=== PATIENT | male | born 1940 | race Caucasian/White ===

== ENCOUNTER 2016-05-08 13:26 | Inpatient (IN) ==
[2016-05-08 14:09] LABS: Basophils % 0.5 %; Eosinophils # 0.2 K/mcL (0.0-0.6); Eosinophils % 2.9 %; Hematocrit 40.2 % (37.5-50.1); Hemoglobin 12.8 g/dL (12.9-16.9); Immature Granulocytes % 0.5 % (0-4); Lymphocytes # 1.2 K/mcL (0.6-4.6); Lymphocytes % 21.5 %; Mean Corpuscular HGB Conc 31.8 g/dL (31.6-35.5); Mean Corpuscular Hemoglobin 29.4 pg (28.0-33.3); Mean Corpuscular Volume 92.4 fL (83.0-100.0); Mean Platelet Volume 9.2 fL (9.4-12.4); Monocytes # 0.5 K/mcL (0.0-1.3); Monocytes % 8.6 %; Neutrophils # 3.7 K/mcL (1.6-8.9); Platelet Count 146 K/mcL (140-400); Red Blood Count 4.35 M/mcL (4.19-5.50); Red Cell Distribution Width 14.7 % (11.5-14.5)
[2016-05-08 14:21] LABS: BUN/Creatinine Ratio 15 (6-26); Blood Urea Nitrogen 19 mg/dL (8-26); Calcium 9.2 mg/dL (8.6-10.8); Carbon Dioxide 21 mEq/L (19-29); Chloride 111 mEq/L (98-109); Glucose 103 mg/dL (70-99); Osmolality,Calculated 299 (280-300); Potassium 3.8 mEq/L (3.5-4.5); Sodium 143 mEq/L (136-145); eGFR For African Americans > 60 (> 60); eGFR For Non-African Americans 53 (> 60)
[2016-05-08] MEDS ORDERED: Aspirin 325 MG TABLET PO ONE (15:16)
--- NOTE | 2016-05-08 15:24 | Emergency Department Note ---
Disposition Clinical Impression: Elevated troponin I level, Exertional dyspnea Pneumonia Qualifiers: Pneumonia type: due to unspecified organism Laterality: right Lung location: lower lobe of lung Qualified Code(s): J18.1 - Lobar pneumonia, unspecified organism Disposition: Admitted As Inpatient Condition: Fair Forms: ED Satisfaction Letter Time of Disposition: 15:53 SOB HPI - General Chief Complaint: ED Shortness of Breath/Dyspnea Stated Complaint: BIA Time Seen by Provider: 05/08/16 13:40 Source: patient Limitations: no limitations Nursing Notes Reviewed: Yes Vital Signs Reviewed: Yes - History of Present Illness Patient is a 76-year-old male who presents to [facility] ED with a chief complaint of difficulty breathing and some chest pain. States he has had upper respiratory infection that turned into a pneumonia several months ago 03/18. He was hospitalized here for a few days and then sent home on oral Levaquin. He has continually had symptoms of cough since then and shortness of breath. He has progressed to have severe exertional dyspnea where he cannot take more than several steps before getting out of breath and having to lean up against something. States he just overall feels weak. Denies having any actual chest pain. Denies any nausea, vomiting, fever or chills. No problems with urination or bowel movements. No history of cardiac problems. His last heart stress test was approximately 18 years ago. Pt Subjective Complaint: shortness of breath Onset (ago): month(s) Context: recent illness, occurred during exertion Severity: moderate Consistency/Duration: gradually worsening Improves with: oxygen, rest Worsens with: movement Known history of: other (pneumonia) Associated symptoms: Reports: cough. Denies: chest pain, fever, diaphoresis, nausea/vomiting, abdominal pain Treatment prior to arrival: oxygen Cough present: No Sputum production: No - Related Data Home oxygen amount: 2 liters Home Medications Medication Instructions Recorded Confirmed Amlodipine Besylate 10 mg PO DAILY 03/18/16 03/18/16 Naproxen Sodium [Aleve] 220 - 440 mg PO DAILY PRN 03/18/16 03/18/16 Simvastatin [Zocor] 20 mg PO DAILY 03/18/16 03/18/16 Tamsulosin HCl [Flomax] 0.4 mg PO DAILY 03/18/16 03/18/16 Previous Rx's Medication Instructions Recorded Albuterol Sulfate [Albuterol 1 puff IH Q4HR PRN #4 inhaler 03/20/16 Inhaler] Budesonide/Formoterol 80/4.5 2 puff IH BIDR #5 inhaler 03/20/16 [Symbicort 80/4.5] Levofloxacin [Levaquin] 750 mg PO DAILY #5 tablet 03/20/16 PredniSONE 40 mg PO DAILY #21 tablet 03/20/16 Allergies Allergy/AdvReac Type Severity Reaction Status Date / Time Penicillins [PCN] AdvReac Hives Verified 09/27/15 11:05 All systems ED: reviewed and negative except as stated. Past Medical History - Past Medical History Attestation: Yes The following information was validated with the patient. Source: patient Medical history: Reports: GERD, hypertension Surgical history: Reports: hip replacement Psychiatric history: Reports: no psych history - Social History Smoking Status: Former smoker Smokeless Tobacco Status: No Alcohol use: Reports: none Drug use: Reports: none Physical Exam - General Limitations: no limitations General appearance: alert - Head Head exam: atraumatic, normocephalic, normal inspection - Eye Eye exam: Present: normal appearance, PERRL, EOMI - ENT ENT exam: normal exam, normal oropharynx, mucous membranes moist - Neck Neck exam: Present: normal inspection, full ROM, trachea midline - Chest Chest inspection: Present: normal inspection, symmetric chest wall rise - Respiratory Respiratory exam: Present: normal lung sounds bilaterally - Cardiovascular Cardiovascular exam: Present: normal rhythm, tachycardia - Abdominal Exam Abdominal exam: Present: soft, Non-Tender. Absent: tenderness, distention, guarding, rebound, rigidity - Extremities Exam Extremities exam: Present: normal inspection, full ROM. Absent: tenderness, pedal edema - Back Exam Back exam: Present: normal inspection, full ROM. Absent: tenderness - Neurological Exam Neurological exam: Present: alert, oriented X3 - Psychiatric Psychiatric exam: Present: normal affect, normal mood - Skin Skin exam: Present: warm, dry, intact, normal color Course Course Narrative: Patient seen and examined. Difficulty breathing for the last few months. Oxygen saturations around 86% on 2 L. He gets extremely short of breath with exertion. Cardiopulmonary workup initiated. - Reevaluation(s) Reevaluation #1: Patient does have a troponin elevation of 0.04 as well as persistent right lower lobe infiltrate. Aspirin ordered. Patient is still not moving very much air. Triple DuoNeb ordered for him. Also give 125 mg of Solu-Medrol. We will place him on Levaquin and vancomycin and repeat a CT of the chest. I spoke with hospitalist Brenda Simon NP who has accepted patient for admission. Time: 15:50 Vital Signs Temperature 97.4 F L 05/08/16 13:35 Pulse Rate 105 05/08/16 13:35 Respiratory Rate 20 05/08/16 13:35 Blood Pressure 109/60 05/08/16 13:35 O2 Sat by Pulse Oximetry 78 L 05/08/16 13:35 Temperature 97.4 F L 05/08/16 13:35 Pulse Rate 91 05/08/16 14:49 Respiratory Rate 20 05/08/16 14:49 Blood Pressure 126/73 05/08/16 14:49 O2 Sat by Pulse Oximetry 91 L 05/08/16 14:49 Oxygen Delivery Oxygen Delivery Nasal Cannula Shortness of Breath/Dyspnea - Medical Records Medical records reviewed: Yes I reviewed the patient's medical records. - Lab Data Lab results reviewed: Yes I reviewed the patient's lab results. Result diagrams: 05/08/16 14:02 05/08/16 14:02 Lab Results 05/08/16 05/08/16 05/08/16 Range/Units 14:02 14:02 14:02 WBC 5.6 (4.3-11.1) K/mcL RBC 4.35 (4.19-5.50) M/mcL Hgb 12.8 L (12.9-16.9) g/dL Hct 40.2 (37.5-50.1) % MCV 92.4 (83.0-100.0) fL MCH 29.4 (28.0-33.3) pg MCHC 31.8 (31.6-35.5) g/dL RDW 14.7 H (11.5-14.5) % Plt Count 146 (140-400) K/mcL MPV 9.2 L (9.4-12.4) fL Immature Gran % 0.5 (0-4) % Seg Neutrophils % 66.0 % Lymphocytes % 21.5 % Monocytes % 8.6 % Eosinophils % 2.9 % Basophils % 0.5 % Neutrophils # 3.7 (1.6-8.9) K/mcL Lymphocytes # 1.2 (0.6-4.6) K/mcL Monocytes # 0.5 (0.0-1.3) K/mcL Eosinophils # 0.2 (0.0-0.6) K/mcL Basophils # 0.0 (0.0-0.2) K/mcL Sodium 143 (136-145) mEq/L Potassium 3.8 (3.5-4.5) mEq/L Chloride 111 H (98-109) mEq/L Carbon Dioxide 21 (19-29) mEq/L BUN 19 (8-26) mg/dL Creatinine 1.31 H (0.72-1.25) mg/dL Est GFR ( Amer) > 60 (> 60) Est GFR (Non-Af Amer) 53 L (> 60) BUN/Creatinine Ratio 15 (6-26) Glucose 103 H (70-99) mg/dL Calculated Osmolality 299 (280-300) Lactic Acid 1.2 (0.5-2.2) mmol/L Calcium 9.2 (8.6-10.8) mg/dL Troponin I (0-0.03) ng/mL B-Natriuretic Peptide (0-100) pg/mL 05/08/16 05/08/16 Range/Units 14:02 14:02 WBC (4.3-11.1) K/mcL RBC (4.19-5.50) M/mcL Hgb (12.9-16.9) g/dL Hct (37.5-50.1) % MCV (83.0-100.0) fL MCH (28.0-33.3) pg MCHC (31.6-35.5) g/dL RDW (11.5-14.5) % Plt Count (140-400) K/mcL MPV (9.4-12.4) fL Immature Gran % (0-4) % Seg Neutrophils % % Lymphocytes % % Monocytes % % Eosinophils % % Basophils % % Neutrophils # (1.6-8.9) K/mcL Lymphocytes # (0.6-4.6) K/mcL Monocytes # (0.0-1.3) K/mcL Eosinophils # (0.0-0.6) K/mcL Basophils # (0.0-0.2) K/mcL Sodium (136-145) mEq/L Potassium (3.5-4.5) mEq/L Chloride (98-109) mEq/L Carbon Dioxide (19-29) mEq/L BUN (8-26) mg/dL Creatinine (0.72-1.25) mg/dL Est GFR ( Amer) (> 60) Est GFR (Non-Af Amer) (> 60) BUN/Creatinine Ratio (6-26) Glucose (70-99) mg/dL Calculated Osmolality (280-300) Lactic Acid (0.5-2.2) mmol/L Calcium (8.6-10.8) mg/dL Troponin I 0.04 H* (0-0.03) ng/mL B-Natriuretic Peptide 99 (0-100) pg/mL - Radiology Data Radiology results reviewed: Yes I reviewed the patient's radiology results. - EKG Data EKG attestation: Yes I reviewed and interpreted this EKG. EKG results narrative: EKG done at 1447 shows normal sinus rhythm with a rate of [address] elevation or depression. Left axis deviation. Unchanged from prior EKG done .
[2016-05-08] MEDS ORDERED: Ipratropium/Albuterol Neb 3 ML IH ONE (15:43)
[2016-05-08] MEDS ORDERED: methylPREDNISolone 125 MG/2 ML VIAL IVP ONE (15:44)
--- NOTE | 2016-05-08 15:52 | Emergency Department Note ---
START Narrative - START START: I examined this patient and my medical decision-making was reviewed with the FINANCE MANAGER/PA/Advanced Practice Nurse/Resident Physician. I agree with the documented findings, disposition and treatment plan as described except to the extent set forth below. Patient emergency department any difficulty in breathing. Dyspnea on exertion. Patient had a recent admission for pneumonia. States she does not feel like he ever got better. No fever. On examination he is in no distress. His lung sounds are diminished. Plan. The patient has a persistent infiltrate on his chest x-ray. He has a slightly elevated troponin at 0.04. He is given an aspirin. Nebulizer treatments. Admitted to medicine. The patient's oxygen saturation improved when he is placed on oxygen. He is normally on 3 L at home but 4 required here to keep saturation above 92%. 30 minutes of critical care exclusive of separately billable procedures.
[2016-05-08] MEDS ORDERED: Vancomycin 1,250 MG in D5% in Water 250 ML IVPB ONE (16:00)
[2016-05-08] MEDS: Levofloxacin 750 MG/150 ML 750 MG/150 ML BAG IVPB SCH (16:21)
--- NOTE | 2016-05-08 21:01 | Internal Med History&Physical ---
<Marisol Meyer - Last Filed: 05/08/16 22:30> Date of Encounter: 05/08/16 Time of Encounter: 20:59 Assessment and Plan (1) Acute on chronic respiratory failure with hypoxemia Status: Acute duoneb q4h solu-medrol 80mg q12h Levaquin VBG to check CO2 rentention - results will determine what O2 sat to maintain patient at (2) VINOD (acute kidney injury) Status: Acute IVF AM labs (3) Elevated troponin I level Status: Acute trend troponins (4) HTN (hypertension) Status: Acute continue home medication monitor PRN labetalol Qualifiers: Hypertension type: essential hypertension Qualified Code(s): I10 - Essential (primary) hypertension (5) Emphysema of lung Status: Acute chest CT shows severe emphysema home medications are not adequate to manage severe emphysema consider pulmonology consult either inpatient or outpatient for emphysema management Qualifiers: Emphysema type: centrilobular Qualified Code(s): J43.2 - Centrilobular emphysema Internal Medicine - H&P: HPI Chief complaint: shortness of breath Admitted From: Emergency Dept Plans for Post Hospital Care: Home History of present illness: Mr. Tapia is a 76 year old male who presents to the ER with increased shortness of breath and difficulty in breathing. He was admitted at the end of February with pneumonia and feels that he never really got better. On further questioning, he states that he has been short of breath since November of 2014. He also states that every year around November he gets a hacking cough that he believes is due to allergies and the past few years it has manifested as multiple bouts of pneumonia. He currently uses 2L of supplemental O2 24/7 at home. Before arrival to the ER he states that he would have dyspnea with walking less than 20 feet, also with lifting his 20 # dog onto the bed. He notes associated weakness and fatigue. Past Med Surg Social Fam HX - Past Medical History Source: patient Medical history: GERD, hypertension Psychiatric history: no psych history - Past Surgical History Surgical History: herniorrhaphy, hip replacement - Social History Smoking Status: Former smoker Smokeless Tobacco Status: No Alcohol use: rarely Drug use: none - Family History Brother Living Status: Hx Family Cardiac Disorders: Yes Mother Living Status: Hx Family Neurologic Disorders: Yes (alzheimer's) Father History Unknown: Yes Internal Medicine - H&P: Meds Amlodipine Besylate 10 mg PO DAILY 03/18/16 [History] Tamsulosin HCl [Flomax] 0.4 mg PO DAILY 03/18/16 [History] Albuterol Sulfate [Albuterol Inhaler] 1 puff IH Q4HR PRN #4 inhaler 03/20/16 [Rx ] Budesonide/Formoterol 80/4.5 [Symbicort 80/4.5] 2 puff IH BIDR #5 inhaler 03/20 [Rx] Aspirin Enteric Coated [Aspirin EC] 81 mg PO DAILY 05/08/16 [History] Furosemide [Lasix] 20 mg PO DAILY #30 tablet 05/10/16 [Rx] PredniSONE 10 mg PO DAILY 12 Days 05/10/16 [Rx] Allergies Penicillins [PCN] Adverse Reaction (Verified 09/27/15 11:05) Hives All Systems PM: A 10-system review of systems was performed and is negative for pertinent findings except as documented above in the HPI. - Constitutional Constitutional: fatigue, weakness, no chills, no fever(s), no night sweats - EENT Eyes: no change in vision, no discharge, no pain, no photophobia Ears: no ear discharge, no ear pain, no tinnitus Nose, mouth and throat: no dysphagia, no nasal discharge, no neck pain, no sore throat - Cardiovascular Cardiovascular ROS IM: dyspnea, dyspnea on exertion, no chest pain, no diaphoresis, no lightheadedness, no palpitations, no syncope - Respiratory Respiratory: cough, no dyspnea, no wheezing, no excessive phlegm production - Gastrointestinal Gastrointestinal: no abdominal pain, no diarrhea, no hematemesis, no hematochezia, no melena, no nausea, no vomiting - Genitourinary Genitourinary ROS male: no dysuria - Musculoskeletal Musculoskeletal ROS IM: no arthralgias, no myalgias, no numbness, no tingling - Integumentary Integumentary IM: no rash, no unusual bruising - Neurological Neurological ROS: no confusion, no convulsions, no focal weakness, no numbness, no tingling, no tremor(s) - Hematologic/Lymphatic Hematologic/Lymphatic: no easy bruising - Constitutional Vitals: Temp Pulse Resp BP Pulse Ox 97.5 F L 106 17 139/62 97 05/08/16 19:13 05/08/16 19:13 05/08/16 19:13 05/08/16 19:13 05/08/16 19:13 General appearance: Present: A&O X 3, pleasant, no acute distress, answers questions appropriately - Head Head exam: Present: atraumatic, normocephalic - Eye Eye exam: Present: PERRL, conjuntiva pink, sclera anicteric Pupils: Present: PERRL - Neck Neck exam general surgery: Present: supple, trachea midline. Absent: lymphadenopathy - Respiratory Respiratory exam: Present: CTAB. Absent: accessory muscle use, rales, rhonchi, wheezes - Cardiovascular Cardiovascular exam: Present: RRR, +S1, +S2. Absent: diastolic murmur, gallop, rubs, systolic murmur - GI/Abdominal GI/Abdominal exam: Present: normal bowel sounds, soft, no peritoneal signs. Absent: distended, tenderness - Extremities Exam Extremities exam: Present: warm. Absent: calf tenderness, cyanotic, pedal edema - Neurological Exam Neurological exam: Present: CN II-XII intact, oriented X3, no focal deficits. Absent: pronater drift, facial droop, speech deficit - Skin Skin exam: Present: dry, intact Internal Med - H&P Results - Labs CBC & Chem 7: 05/08/16 14:02 05/08/16 14:02 <Gamal Bassettis - Last Filed: 05/13/16 02:53> Date of Encounter: 05/08/16 Assessment and Plan (1) Acute exacerbation of chronic obstructive pulmonary disease (COPD) Status: Acute . (2) SIRS (systemic inflammatory response syndrome) Status: Acute . (3) Demand ischemia of myocardium Status: Acute . (4) Ischemia due to increased oxygen demand Status: Acute . (5) VINOD (acute kidney injury) Status: Acute . (6) Acute on chronic respiratory failure with hypoxemia Status: Acute . (7) Elevated troponin I level Status: Acute . (8) Emphysema of lung Status: Chronic . Qualifiers: Emphysema type: centrilobular Qualified Code(s): J43.2 - Centrilobular emphysema (9) Exertional dyspnea Status: Chronic . (10) HTN (hypertension) Status: Chronic . Qualifiers: Hypertension type: essential hypertension Qualified Code(s): I10 - Essential (primary) hypertension (11) Pulmonary nodules Status: Chronic . (12) Chronic respiratory failure with hypoxia Status: Chronic . (13) Dependence on continuous supplemental oxygen Status: Chronic . (14) Acute bronchitis and bronchiolitis Status: Acute . (15) Age-related physical debility Status: Chronic . Internal Medicine - H&P: HPI History of present illness: Mr. Tapia is a 76 year old male is admitted to [facility] via the emergency department with an chief complaint of difficulty breathing. The patient was visited interviewed and examined. For this encounter, I have reviewed the documentation, treatment plan, and medical decision making. I examined this patient and my medical decision-making was reviewed with the Resident Physician. I agree with the documented findings, disposition and treatment plan as described except to the extent set forth below. Cumulative laboratory and radiographic database was reviewed, considered and discussed. Given the patient's presenting concerns, past medical history, clinical findings and symptoms, she is admitted at this time to undergo further evaluation and disposition. Orders written. Past Med Surg Social Fam HX - Past Medical History Source: old records reviewed Medical history: arthritis, COPD, coronary artery disease, GERD, peripheral artery disease, renal disease (BPH/prostatism.), other (Diverticulosis coli.) - Past Surgical History Surgical History: other - Social History Activity Level: Mostly sedentary Recent Out of Country Travel Within the Last 8 Weeks: No Exposure or Possible Exposure to Illness During Travel: No All Systems PM: A 10-system review of systems was performed and is negative for pertinent findings except as documented above in the HPI. - Constitutional Vitals: Temp Pulse Resp BP Pulse Ox 97.5 F L 98 18 103/63 88 L 05/10/16 06:46 05/10/16 06:46 05/10/16 08:05 05/10/16 06:46 05/10/16 08:05 Internal Med - H&P Results - Labs CBC & Chem 7: 05/09/16 04:33 05/10/16 06:53 Labs: Abnormal lab results Hgb 12.3 g/dL (12.9-16.9) L 05/09/16 04:33 RDW 14.9 % (11.5-14.5) H 05/09/16 04:33 VBG pCO2 38 mmHg (41-51) L 05/09/16 06:13 VBG pO2 69 mmHg (25-40) H 05/09/16 06:13 Chloride 111 mEq/L (98-109) H 05/10/16 06:53 BUN 28 mg/dL (8-26) H D 05/10/16 06:53 Creatinine 1.29 mg/dL (0.72-1.25) H 05/10/16 06:53 Est GFR (Non-Af Amer) 54 (> 60) L 05/10/16 06:53 Glucose 139 mg/dL (70-99) H 05/10/16 06:53 Calculated Osmolality 302 (280-300) H 05/10/16 06:53 Laboratory Last Values WBC 4.5 K/mcL (4.3-11.1) 05/09/16 04:33 RBC 4.21 M/mcL (4.19-5.50) 05/09/16 04:33 Hgb 12.3 g/dL (12.9-16.9) L 05/09/16 04:33 Hct 38.8 % (37.5-50.1) 05/09/16 04:33 MCV 92.2 fL (83.0-100.0) 05/09/16 04:33 MCH 29.2 pg (28.0-33.3) 05/09/16 04:33 MCHC 31.7 g/dL (31.6-35.5) 05/09/16 04:33 RDW 14.9 % (11.5-14.5) H 05/09/16 04:33 Plt Count 151 K/mcL (140-400) 05/09/16 04:33 MPV 9.9 fL (9.4-12.4) 05/09/16 04:33 Immature Gran % 0.4 % (0-4) 05/09/16 04:33 Seg Neutrophils % 82.3 % 05/09/16 04:33 Lymphocytes % 15.1 % 05/09/16 04:33 Monocytes % 2.2 % 05/09/16 04:33 Eosinophils % 0.0 % 05/09/16 04:33 Basophils % 0.0 % 05/09/16 04:33 Neutrophils # 3.7 K/mcL (1.6-8.9) 05/09/16 04:33 Lymphocytes # 0.7 K/mcL (0.6-4.6) 05/09/16 04:33 Monocytes # 0.1 K/mcL (0.0-1.3) 05/09/16 04:33 Eosinophils # 0.0 K/mcL (0.0-0.6) 05/09/16 04:33 Basophils # 0.0 K/mcL (0.0-0.2) 05/09/16 04:33 VBG pH 7.39 pH Units (7.32-7.42) 05/09/16 06:13 VBG pCO2 38 mmHg (41-51) L 05/09/16 06:13 VBG pO2 69 mmHg (25-40) H 05/09/16 06:13 VBG HCO3 23.0 mEq/L (21-27) 05/09/16 06:13 Sodium 142 mEq/L (136-145) 05/10/16 06:53 Potassium 4.0 mEq/L (3.5-4.5) 05/10/16 06:53 Chloride 111 mEq/L (98-109) H 05/10/16 06:53 Carbon Dioxide 20 mEq/L (19-29) 05/10/16 06:53 BUN 28 mg/dL (8-26) H D 05/10/16 06:53 Creatinine 1.29 mg/dL (0.72-1.25) H 05/10/16 06:53 Est GFR ( Amer) > 60 (> 60) 05/10/16 06:53 Est GFR (Non-Af Amer) 54 (> 60) L 05/10/16 06:53 BUN/Creatinine Ratio 22 (6-26) 05/10/16 06:53 Glucose 139 mg/dL (70-99) H 05/10/16 06:53 Calculated Osmolality 302 (280-300) H 05/10/16 06:53 Lactic Acid 1.2 mmol/L (0.5-2.2) 05/08/16 14:02 Calcium 8.9 mg/dL (8.6-10.8) 05/10/16 06:53 Total Bilirubin 0.6 mg/dL (0.2-1.2) 05/09/16 04:33 AST 14 Units/L (5-34) 05/09/16 04:33 ALT 10 Units/L (0-55) 05/09/16 04:33 Alkaline Phosphatase 61 Units/L (38-126) 05/09/16 04:33 Troponin I 0.03 ng/mL (0-0.03) 05/09/16 10:40 B-Natriuretic Peptide 99 pg/mL (0-100) 05/08/16 14:02 Serum Total Protein 6.9 g/dL (6.0-8.3) 05/09/16 04:33 Albumin 3.8 g/dL (3.5-5.0) 05/09/16 04:33 Globulin 3.1 g/dL (2.4-3.5) 05/09/16 04:33 Albumin/Globulin Ratio 1.2 (1.1-2.2) 05/09/16 04:33 Chlamy pneumoniae PCR Not Detected (Not Detect) 05/09/16 06:25 Adenovirus (PCR) Not Detected (Not Detect) 05/09/16 06:25 B. pertussis DNA (PCR) Not Detected (Not Detect) 05/09/16 06:25 Coronavirus OC43 (PCR) Not Detected (Not Detect) 05/09/16 06:25 Coronavirus HKU1 (PCR) Not Detected (Not Detect) 05/09/16 06:25 Coronavirus 229E (PCR) Not Detected (Not Detect) 05/09/16 06:25 Coronavirus NL63 (PCR) Not Detected (Not Detect) 05/09/16 06:25 Human Metapneumovirus Not Detected (Not Detect) 05/09/16 06:25 Influenza A (H1) PCR Not Detected (Not Detect) 05/09/16 06:25 Influ A (H1N1/09) PCR Not Detected (Not Detect) 05/09/16 06:25 Influenza A (H3) PCR Not Detected (Not Detect) 05/09/16 06:25 Influenza A Untype (PCR) Not Detected (Not Detect) 05/09/16 06:25 Influenza Type B (PCR) Not Detected (Not Detect) 05/09/16 06:25 M.pneumoniae DNA (PCR) Not Detected (Not Detect) 05/09/16 06:25 Parainfluenza 1 (PCR) Not Detected (Not Detect) 05/09/16 06:25 Parainfluenza 2 (PCR) Not Detected (Not Detect) 05/09/16 06:25 Parainfluenza 3 (PCR) Not Detected (Not Detect) 05/09/16 06:25 Parainfluenza 4 (PCR) Not Detected (Not Detect) 05/09/16 06:25 RSV (PCR) Not Detected (Not Detect) 05/09/16 06:25 Entero/Rhino (PCR) Not Detected (Not Detect) 05/09/16 06:25 - ABG Interpretation ABG results: 05/09/16 06:13 VBG pH 7.39 VBG pCO2 38 L VBG pO2 69 H VBG HCO3 23.0 - Impressions Chest X-Ray 05/08/16 13:46 IMPRESSION: Persistent right lung infiltrate. Follow-up CT scan chest is recommended for further evaluation D/ / Devang Valentino MD / Devang Valentino MD Interpreting Provider: Devang Valentino MD Chest CT 05/08/16 15:45 IMPRESSION: Severe emphysema. Trace persistent bilateral pleural effusions. No evidence of acute pneumonia. Several stable small bilateral pulmonary nodules measuring up to 5 mm, unchanged from 09/27/2015 (7 month stability). Additional follow-up chest CT recommended in 12-18 months. RECOMMENDATIONS: Fleischner Society guidelines for follow-up and management of pulmonary nodules: Nodule size equals 4-6 mm In a low-risk patient, follow-up CT at 12 months; if unchanged, no further follow-up. In a high-risk patient, initial follow-up CT at 6-12 months then at 18-24 months if no change. Low risk patients include individuals with minimal or absent history of smoking and other known risk factors. High risk patients include individuals with a history of smoking or other known risk factors. Radiology 2005; [id number] D/ / 05/08/2016 16:45:49 Shorty Love MD / ericka Interpreting Provider: Shorty Love MD - Attending Attestation My signature below is to certify that this patient is under my care and that I, or the Resident Physician working with me, has had a [id number] encounter with this patient. Plan of care has been reviewed and discussed in detail with the patient. Questions addressed. Advance care directive discussion briefly addressed. Patient does not declare any healthcare restrictions at this time. Outpatient medication schedules will be reviewed, confirmed and facilitated as appropriate. Reconciliation of home treatments including adjustments, substitutions and reintroduction into the treatment regimen will address this tremendous therapies for chronic pre-existing medical conditions. Smoking cessation counseling briefly addressed. The patient declares that he is a former smoker. Hospital course will be dependent upon clinical findings, treatment response and potential consultative interventions. The patient is at risk for acute clinical decline and morbidity given his presenting chief complaint, findings and associated comorbidities. Condition is serious. Prognosis is guarded. CODE STATUS is full.
[2016-05-08] MEDS ORDERED: Ondansetron ODT 4 MG TAB.RAPDIS SL PRN (22:20)
[2016-05-08] MEDS ORDERED: Acetaminophen 325 MG TABLET PO PRN (22:20)
[2016-05-08] MEDS ORDERED: Naloxone 0.4 MG/ML INJ IVP PRN (22:20)
[2016-05-08] MEDS ORDERED: 0.9 % Sodium Chloride 1,000 ML IVC SCH (22:30)
[2016-05-08] MEDS ORDERED: *HR* Labetalol 20 MG/4 ML SYRINGE IVP PRN (22:37)
[2016-05-08 23:31] LABS: VBG HCO3 24.2 mEq/L (21-27); VBG PH 7.4 pH Units (7.32-7.42)
[2016-05-09] MEDS: Ipratropium/Albuterol Neb 3 ML IH SCH ×7 (01:16→23:54)
[2016-05-09 05:06] LABS: Hematocrit 38.8 % (37.5-50.1); Hemoglobin 12.3 g/dL (12.9-16.9); Immature Granulocytes % 0.4 % (0-4); Lymphocytes # 0.7 K/mcL (0.6-4.6); Lymphocytes % 15.1 %; Mean Corpuscular HGB Conc 31.7 g/dL (31.6-35.5); Mean Corpuscular Hemoglobin 29.2 pg (28.0-33.3); Mean Corpuscular Volume 92.2 fL (83.0-100.0); Mean Platelet Volume 9.9 fL (9.4-12.4); Monocytes # 0.1 K/mcL (0.0-1.3); Monocytes % 2.2 %; Neutrophils # 3.7 K/mcL (1.6-8.9); Platelet Count 151 K/mcL (140-400); Red Blood Count 4.21 M/mcL (4.19-5.50); Red Cell Distribution Width 14.9 % (11.5-14.5); Segmented Neutrophils % 82.3 %
[2016-05-09 05:22] LABS: Alanine Aminotransferase 10 Units/L (0-55); Albumin 3.8 g/dL (3.5-5.0); Albumin/Globulin Ratio 1.2 (1.1-2.2); Alkaline Phosphatase 61 Units/L (38-126); Aspartate Amino Transferase 14 Units/L (5-34); BUN/Creatinine Ratio 13 (6-26); Bilirubin,Total 0.6 mg/dL (0.2-1.2); Blood Urea Nitrogen 16 mg/dL (8-26); Calcium 9.2 mg/dL (8.6-10.8); Carbon Dioxide 18 mEq/L (19-29); Chloride 113 mEq/L (98-109); Globulin 3.1 g/dL (2.4-3.5); Glucose 148 mg/dL (70-99); Osmolality,Calculated 300 (280-300); Potassium 4.1 mEq/L (3.5-4.5); Sodium 143 mEq/L (136-145); Total Protein 6.9 g/dL (6.0-8.3); eGFR For African Americans > 60 (> 60); eGFR For Non-African Americans 58 (> 60)
[2016-05-09] MEDS ORDERED: *HR* Morphine 2 MG/ML SYRINGE IVP PRN (05:44)
[2016-05-09] MEDS ORDERED: Albuterol 2.5 MG/3 ML NEBULIZER IH PRN (05:44)
[2016-05-09] MEDS ORDERED: Benzonatate 100 MG CAPSULE PO PRN (05:44)
[2016-05-09] MEDS ORDERED: Ondansetron 4 MG/2 ML VIAL IVP PRN (05:44)
[2016-05-09] MEDS ORDERED: *HR* OxyCODONE Immed Rel 5 MG TABLET PO PRN (05:44)
[2016-05-09] MEDS ORDERED: methylPREDNISolone 125 MG/2 ML VIAL IVP SCH (06:00)
[2016-05-09 06:23] LABS: VBG PH 7.39 pH Units (7.32-7.42)
[2016-05-09] MEDS: Levofloxacin 750 MG/150 ML 750 MG/150 ML BAG IVPB SCH (07:36)
[2016-05-09 07:52] LABS: Adenovirus Not Detected (Not Detect); Bordetella Pertussis Not Detected (Not Detect); Chlamydophila pneumoniae Not Detected (Not Detect); Coronavirus 229E Not Detected (Not Detect); Coronavirus HKU1 Not Detected (Not Detect); Coronavirus NL63 Not Detected (Not Detect); Coronavirus OC43 Not Detected (Not Detect); Human Metapneumovirus Not Detected (Not Detect); Human Rhinovirus/Enterovirus Not Detected (Not Detect); Influenza A Subtype 2009 H1 Not Detected (Not Detect); Influenza A Untypeable Not Detected (Not Detect); Influenza B Not Detected (Not Detect); Mycoplasma pneumoniae Not Detected (Not Detect); Parainfluenza Virus 1 Not Detected (Not Detect); Parainfluenza Virus 2 Not Detected (Not Detect); Parainfluenza Virus 3 Not Detected (Not Detect); Parainfluenza Virus 4 Not Detected (Not Detect); Respiratory Syncytial Virus Not Detected (Not Detect)
[2016-05-09] MEDS: Budesonide/Formoterol 80/4.5 MDI IH SCH ×2 (08:05→19:46)
--- NOTE | 2016-05-09 08:41 | Internal Med Progress Note ---
Date of Encounter: 05/09/16 Time of Encounter: 08:38 - Assessment and plan (1) Acute on chronic respiratory failure with hypoxemia Current Visit: Yes Status: Acute Assessment and plan: Acute chronic hypoxic respiratory failure secondary to combination of bilateral pleural effusions/acute CHF exacerbation systolic versus diastolic with mild acute COPD exacerbation possibly secondary to viral bronchitis Continue Solu-Medrol and DuoNeb's Continue Lasix IV, strict I's and O's and daily weight Order an echocardiogram Consider discontinuing Levaquin day [address] scan of the chest shows severe emphysema with trace persistent bilateral pleural effusions and several stable small bilateral pulmonary nodules will need to be followed as an outpatient (2) Elevated troponin Current Visit: Yes Status: Acute Assessment and plan: Likely secondary to demand ischemia (3) Pleural cavity effusion Current Visit: Yes Status: Acute (4) HTN (hypertension) Current Visit: Yes Status: Acute Assessment and plan: Stable Qualifiers: Hypertension type: essential hypertension Qualified Code(s): I10 - Essential (primary) hypertension (5) Emphysema of lung Current Visit: No Status: Acute Qualifiers: Emphysema type: centrilobular Qualified Code(s): J43.2 - Centrilobular emphysema (6) Pulmonary nodules Current Visit: Yes Status: Acute Assessment and plan: High risk of consultations from respiratory failure - Time Spent With Patient Greater than 35 minutes - Subjective Interval history: The patient feels very short of breath, his saturation oxygen dropped to the low 80s just by standing. Denies any chest pain, no fevers, no abdominal pain, dysuria, no diarrhea - Constitutional Vitals: Temp Pulse Resp BP Pulse Ox 97.5 F L 68 17 166/80 91 L 05/09/16 07:45 05/09/16 07:45 05/09/16 07:45 05/09/16 07:45 05/09/16 07:50 General appearance: Present: A&O X 3, pleasant, no acute distress, answers questions appropriately - Head Head exam: Present: atraumatic, normocephalic - Eye Eye exam: Present: PERRL, conjuntiva pink, sclera anicteric Pupils: Present: PERRL - Neck Neck exam general surgery: Present: supple, trachea midline. Absent: lymphadenopathy - Respiratory Respiratory exam: Present: decreased breath sounds, CTAB, rales (Findings by bibasilar crackles). Absent: accessory muscle use, rhonchi, wheezes - Cardiovascular Cardiovascular exam: Present: RRR, +S1, +S2. Absent: diastolic murmur, gallop, rubs, systolic murmur - GI/Abdominal GI/Abdominal exam: Present: normal bowel sounds, soft, no peritoneal signs. Absent: distended, tenderness - Extremities Exam Extremities exam: Present: warm, radial pulses palpable and symetrical. Absent : calf tenderness, cyanotic, pedal edema - Neurological Exam Neurological exam: Present: CN II-XII intact, oriented X3, no focal deficits. Absent: pronater drift, facial droop, speech deficit - Skin Skin exam: Present: dry, intact Internal Medicine: Result - Labs CBC & Chem 7: 05/09/16 04:33 05/09/16 04:33 Consult Discharge Plan - Plan Referrals: Amelia Styles MD [Primary Care Provider] -
[2016-05-09] MEDS ORDERED: amLODIPine 5 MG TABLET PO SCH (09:00)
[2016-05-09] MEDS ORDERED: Aspirin Enteric Coated 81 MG Tablet PO SCH (09:00)
[2016-05-09] MEDS: methylPREDNISolone 125 MG/2 ML VIAL IVP SCH ×3 (09:43→20:26)
[2016-05-09] MEDS: Furosemide 40 MG/4 ML VIAL IV SCH ×2 (09:48→20:26)
[2016-05-09] MEDS ORDERED: Levofloxacin 750 MG/150 ML 750 MG/150 ML BAG IVPB SCH (16:00)
--- NOTE | 2016-05-09 17:47 | ECHO - Doppler Report ---
Echocardiogram Name: Ralph Tapia Date of Study: 05/09/2016 Date: 1940 Ht: 69.0 in Medical Record#: [id number] Age: 76 Wt: 195.0 lb Gender: Male BSA: 2.04 Order #: [id number] Location: [facility] Room #: 3B32 Reading Physician: Shelley Osorio DO Finished Metal Repairer: Saurav Cisneros RDCS Ordering Physician: Drake Lopez MD Primary Physician: None Indications: Congestive heart failure Impressions: Hyperdynamic RV and LV function. Indeterminate LV diastolic function. Sinus tachycardia. Suboptimal TR Doppler to estimate RVSP. Left Ventricular Wall Motion: Rest Echo Findings All wall segments showed normal motion. Findings: Study Quality * Technically adequate exam. ECG Findings * Sinus tachycardia. Left Ventricle * LVEF 70%. * Indeterminate diastolic function. * Normal LV chamber size, wall thickness and function. Left Atrium * Normal left atrial size. Mitral Valve * Normal mitral valve structure. * No mitral stenosis. * No mitral regurgitation. Aortic Valve * No aortic regurgitation. * Trileaflet aortic valve. * Mildly calcified aortic valve leaflets. * No aortic stenosis. Tricuspid Valve * Normal tricuspid valve structure. * Suboptimal TR Doppler. At least mild TR. * Estimated RA pressure is 8 mmHg. Pulmonic Valve * Pulmonic valve is not well visualized. * No pulmonic stenosis. * Trace pulmonic regurgitation. Pulmonary Artery * Pulmonary artery not well visualized. Right Ventricle * Normal right ventricular structure and function. Right Atrium * Normal right atrial size. Interatrial Septum * No evidence of PFO by color Doppler. Pericardium * There is no pericardial effusion present. IVC * The IVC is not dilated. * < 50% respiratory change. Aorta * Normally sized aortic root. History Hypertension Hypercholesteremia Measurements: BP: 114/ 53 2D Normal Values IVSd: 1.00 cm 0.6 - 1.0 cm LVIDd: 3.60 cm 3.7 - 5.6 cm LVPWd: 1.00 cm 0.6 - 1.1 cm LVIDs: 2.00 cm 1.5 - 3.6 cm AO: 2.90 cm < 4.0 cm LA: 3.10 cm 2.0 - 4.0cm %FS: 44.40 cm >25 % LA volume: 28 Mitral Valve Peak E:.96 m/sec Peak A:1.19 m/sec E/A Ratio:0.8 Peak E' Lat Joe:9.8 cm/s Peak E' Med Joe:12.8 cm/s E/E' Lat Ratio:9.8 E/E' Med Ratio:7.5 Updated by Shelley Osorio on 05/09/2016 5:41:28 PM electronically signed on 05/09/2016 5:42:42 PM with status of Final Wall Motion Hay[place]: 1=Normal, 2=Hypokinesis, 3=Akinesis, 4=Dyskinesis, 5=Aneurysmal, 6=Hyperkinetic, X=Not Visualized (Blank)=Missing
[2016-05-10] MEDS: Ipratropium/Albuterol Neb 3 ML IH SCH ×2 (04:29→08:04)
[2016-05-10 06:48] VITALS: BP 103/63
[2016-05-10 07:36] LABS: BUN/Creatinine Ratio 22 (6-26); Calcium 8.9 mg/dL (8.6-10.8); Carbon Dioxide 20 mEq/L (19-29); Chloride 111 mEq/L (98-109); Glucose 139 mg/dL (70-99); Osmolality,Calculated 302 (280-300); Sodium 142 mEq/L (136-145); eGFR For African Americans > 60 (> 60); eGFR For Non-African Americans 54 (> 60)
[2016-05-10 07:38] LABS: Blood Urea Nitrogen 28 mg/dL (8-26)
[2016-05-10] MEDS: Budesonide/Formoterol 80/4.5 MDI IH SCH (08:05)
--- NOTE | 2016-05-10 08:18 | Discharge Summary ---
Date of Encounter: 05/10/16 Time of Encounter: 08:15 - Discharge Diagnosis (1) Acute on chronic respiratory failure with hypoxemia Priority: Primary Status: Acute Comments: Acute chronic hypoxic respiratory failure secondary to combination of bilateral pleural effusions/acute CHF exacerbation possibly diastolic with mild acute COPD exacerbation possibly secondary to viral bronchitis (2) Elevated troponin Priority: Secondary Status: Acute Comments: demand ischemia (3) Pleural cavity effusion Priority: Primary Status: Acute (4) HTN (hypertension) Priority: Secondary Status: Acute Qualifiers: Hypertension type: essential hypertension Qualified Code(s): I10 - Essential (primary) hypertension (5) Emphysema of lung Priority: Secondary Status: Acute Qualifiers: Emphysema type: centrilobular Qualified Code(s): J43.2 - Centrilobular emphysema (6) Pulmonary nodules Priority: Secondary Status: Acute - Discharge Medications Prescriptions: Furosemide [Lasix] 20 mg PO DAILY #30 tablet PredniSONE 10 mg PO DAILY 12 Days Home Medications: Amlodipine Besylate 10 mg PO DAILY 03/18/16 [History] Tamsulosin HCl [Flomax] 0.4 mg PO DAILY 03/18/16 [History] Albuterol Sulfate [Albuterol Inhaler] 1 puff IH Q4HR PRN #4 inhaler 03/20/16 [Rx ] Budesonide/Formoterol 80/4.5 [Symbicort 80/4.5] 2 puff IH BIDR #5 inhaler 03/20 [Rx] Aspirin Enteric Coated [Aspirin EC] 81 mg PO DAILY 05/08/16 [History] Furosemide [Lasix] 20 mg PO DAILY #30 tablet 05/10/16 [Rx] PredniSONE 10 mg PO DAILY 12 Days 05/10/16 [Rx] Allergies/Adverse Reactions: Allergies Penicillins [PCN] Adverse Reaction (Verified 09/27/15 11:05) Hives Procedures/tests Complete & Pending: Procedures Performed prior 72 hours Category Date Time Status EV echocardiogram Routine Y 05/09/16 08:37 Completed Date of admission: 05/09/16 05:44 Primary care physician: Amelia Styles - Patient Status Disposition: Home, Self-Care Condition: Fair Overall status at discharge: patient is progressing back to baseline - Discharge Instructions Follow Up With: Amelia Styles MD [Primary Care Provider] - Additional Instructions: Follow with primary care physician within the next 7 days. Continue Lasix 20 mg daily. Taper prednisone. Follow with pulmonary physician within the next 4- 6 weeks for pulmonary function tests. Will require a follow-up CT scan for pulmonary nodules within the next 12-18 months - Diet and Activity Activity: increase activity as tolerated Diet: low fat, low cholesterol Hospital course: Mr. Tapia is a 76 year old male with a past medical history of COPD oxygen dependent 2 Lt , hypertension, GERD who presented to the ER with increased shortness of breath and difficulty in breathing. He was admitted at the end of February with pneumonia and feels that he never really got better. On further questioning, he stated that he has been short of breath since November of 2014. He also stated that every year around November he gets a hacking cough that he believes is due to allergies and the past few years it has manifested as multiple bouts of pneumonia. He currently uses 2L of supplemental O2 24/7 at home. During his hospitalization the patient's oxygen dropped to the 80s while walking. His CT scan of the chest showed severe emphysema with trace small lateral pleural effusions, no evidence of pneumonia. Several stable small bilateral pulmonary nodules measuring up to 5 mm unchanged from 09/27/2015. He was continued on Solu-Medrol was started on Lasix 20 mg IV twice a day. An echocardiogram was ordered showing hyperdynamic right ventricle and left ventricle function with indeterminate left diastolic function., Left ventricular ejection fraction of 70% and no valvular abnormalities. The patient feels stable and will continue using oxygen at home. He will be discharged on a prednisone taper and Lasix 20 mg daily. - Time Spent with Patient Total time spent providing and/or coordinating discharge services: Greater than 30 minutes (40 min) - Constitutional Vitals: Temp Pulse Resp BP Pulse Ox 97.5 F L 98 16 103/63 93 L 05/10/16 06:46 05/10/16 06:46 05/10/16 06:46 05/10/16 06:46 05/10/16 06:46 General appearance: Present: A&O X 3, pleasant, no acute distress, answers questions appropriately - Head Head exam: Present: atraumatic, normocephalic - Eye Eye exam: Present: PERRL, conjuntiva pink, sclera anicteric Pupils: Present: PERRL - Neck Neck exam general surgery: Present: supple, trachea midline. Absent: lymphadenopathy - Respiratory Respiratory exam: Present: decreased breath sounds, CTAB. Absent: accessory muscle use, rales, rhonchi, wheezes - Cardiovascular Cardiovascular exam: Present: RRR, +S1, +S2. Absent: diastolic murmur, gallop, rubs, systolic murmur - GI/Abdominal GI/Abdominal exam: Present: normal bowel sounds, soft, no peritoneal signs. Absent: distended, tenderness - Extremities Exam Extremities exam: Present: warm, radial pulses palpable and symetrical. Absent : calf tenderness, cyanotic, pedal edema - Neurological Exam Neurological exam: Present: CN II-XII intact, oriented X3, no focal deficits. Absent: pronater drift, facial droop, speech deficit - Skin Skin exam: Present: dry, intact
--- NOTE | 2016-05-12 05:56 | Electrocardiograph Report ---
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
== END 2016-05-10 09:10 | disposition home or self-care (01) | DRG 291 ==
LOC: 3BNU 13:26 → EMEROO 13:26 → 3BNU 17:19 → SUATTDRO 05-09 05:44
PROVIDERS: ADMIT Registered Nurse; ATTEND Internal Medicine

== ENCOUNTER 2016-07-29 10:51 | Inpatient (IN) ==
--- NOTE | 2016-07-29 11:57 | Emergency Department Note ---
Disposition Clinical Impression: Hypoxia, COPD exacerbation Disposition: Admitted As Inpatient Condition: Good SOB HPI - General Chief Complaint: ED Shortness of Breath/Dyspnea Stated Complaint: BIA Time Seen by Provider: 07/29/16 11:20 Source: patient Limitations: no limitations Nursing Notes Reviewed: Yes Vital Signs Reviewed: Yes - History of Present Illness 76-year-old male presents to the emergency department with a chief complaint of shortness of breath. He states it feels as if his abdomen is raising too much into his chest causing shortness of breath. He reports that laying on his side makes him feel better. Exertion makes it worse. He reports having this symptom for 8 months with only progression. He reports a history of oxygen dependent COPD. He had moderate COPD for years as he was a former smoker but develop pneumonia twice recently and now is oxygen dependent. He states his abdomen does not hurt at all and he has no radiating or ripping pain. He denies any chest pressure or pain. Denies any history of heart disease or heart attack. Denies any cardiac stenting procedures. Denies any known history of aortic aneurysm. He reports having pain in his chest that radiated to his back months ago and had a study of his aorta at that time but not currently. He reports intermittent constipation. Denies any history of DVT or PE. Denies any history of liver or kidney disease. Denies any history of stroke or cancer. - Related Data Home Medications Medication Instructions Recorded Confirmed Amlodipine Besylate 10 mg PO DAILY 03/18/16 07/29/16 Tamsulosin HCl [Flomax] 0.4 mg PO DAILY 03/18/16 07/29/16 Aspirin Enteric Coated [Aspirin EC] 81 mg PO DAILY 05/08/16 07/29/16 Previous Rx's Medication Instructions Recorded Albuterol Sulfate [Albuterol 1 puff IH Q4HR PRN #4 inhaler 03/20/16 Inhaler] Budesonide/Formoterol 80/4.5 2 puff IH BIDR #5 inhaler 03/20/16 [Symbicort 80/4.5] Allergies Allergy/AdvReac Type Severity Reaction Status Date / Time Penicillins [PCN] Allergy Severe Anaphylaxis Verified 07/02/16 13:38 All systems ED: reviewed and negative except as stated. Constitutional: Denies: fever Cardiovascular: Reports: dyspnea on exertion. Denies: chest pain (He denies any chest pain or pressure), palpitations Respiratory: Denies: cough Gastrointestinal: Denies: abdominal pain, nausea, vomiting Musculoskeletal: Denies: back pain, neck pain Integumentary: Denies: rash Neurological: Denies: headache, weakness, numbness Past Medical History - Past Medical History Medical history: Reports: aortic aneurysm, arthritis, cancer, COPD, GERD, hyperlipidemia, peripheral artery disease, other Surgical history: Reports: other Psychiatric history: Reports: no psych history - Social History Smoking Status: Former smoker Smokeless Tobacco Status: No Alcohol use: Reports: rarely Drug use: Reports: none Physical Exam General: Patient appears somewhat anxious but is alert and oriented 3. Cardiovascular: Regular rate and rhythm. S1, S2. No murmurs, rubs or gallops. Respiratory: Breath sounds clear bilaterally. Mild coarse bilateral breath sounds. No wheezing or respiratory distress Abdomen: Abdomen is soft without any guarding, rebound or rigidity in any round drink. He has normal bowel sounds throughout. No palpable hernias. No elicited pain. No pulsatile abdominal mass. No palpable organomegaly. Eyes: conjunctiva clear HENT: Normocephalic, no signs of head injury. No oral mucosal lesions. Moist mucous membranes Neuro: Cranial nerves intact. No motor or sensory deficit. Musculoskeletal: No joint tenderness or swelling. Bilateral lower extremity swelling involving the ankles which is symmetric. There is no calf tenderness. Skin: No lesions. No diaphoresis. Normal turgor. Normal color Psych: Appropriate - General Limitations: no limitations General appearance: alert Course Course Narrative: Presents to the emergency department with a chief complaint of abdominal pressure and progressive dyspnea. I reviewed a CT scan of his aorta in the past and he had an infrarenal chronic abdominal dissection. Patient seemed uncomfortable, complaining of abdominal discomfort and dyspnea and we felt it was imperative to reevaluate this dissection to look for progression of his dissection. CT of his abdomen shows no progression of this dissection. It reveals bilateral small pleural effusions with bibasilar atelectasis. Patient was ambulated in the emergency department and even with 3 L nasal cannula he essentially immediately desaturates to 82%. Family reports he has been very confused with an abrupt change in his behavior and mentation. We did do a CT scan of his head to look for any frontal lobe abnormality by CT is unremarkable. I suspect his change in behavior and symptoms is due to chronic hypoxia. CT scan did show some gallbladder wall thickening and pericholecystic fluid. He has been having no vomiting or difficulty eating, negative Degroot's on exam. We did order a ultrasound which shows no wall thickening or pericholecystic fluid. His liver enzymes are not elevated and he does not have a leukocytosis. I feel patient requires admission due to hypoxia, likely COPD exacerbation, small effusions and change in behavior/mental status. I discussed with the on- call hospitals, Dr. Barrett who accepts for admission. Vital Signs Temperature 97.5 F L 07/29/16 10:53 Pulse Rate 105 07/29/16 10:53 Respiratory Rate 24 07/29/16 10:53 Blood Pressure 153/88 07/29/16 10:53 O2 Sat by Pulse Oximetry 88 07/29/16 10:53 Temperature 97.5 F L 07/29/16 17:16 Pulse Rate 99 07/29/16 17:16 Respiratory Rate 20 07/29/16 17:16 Blood Pressure 151/92 07/29/16 17:16 O2 Sat by Pulse Oximetry 91 07/29/16 17:16 Oxygen Delivery Oxygen Delivery Nasal Cannula Shortness of Breath/Dyspnea - Lab Data Result diagrams: 07/29/16 12:00 07/29/16 12:00 Lab Results 07/29/16 07/29/16 07/29/16 Range/Units 12:00 12:00 12:00 WBC 6.9 (4.3-11.1) K/mcL RBC 4.19 (4.19-5.50) M/mcL Hgb 11.8 L (12.9-16.9) g/dL Hct 38.3 (37.5-50.1) % MCV 91.4 (83.0-100.0) fL MCH 28.2 (28.0-33.3) pg MCHC 30.8 L (31.6-35.5) g/dL RDW 14.6 H (11.5-14.5) % Plt Count 125 L (140-400) K/mcL MPV 9.9 (9.4-12.4) fL Immature Gran % 0.3 (0-4) % Seg Neutrophils % 68.2 % Lymphocytes % 19.3 % Monocytes % 10.1 % Eosinophils % 1.7 % Basophils % 0.4 % Neutrophils # 4.7 (1.6-8.9) K/mcL Lymphocytes # 1.3 (0.6-4.6) K/mcL Monocytes # 0.7 (0.0-1.3) K/mcL Eosinophils # 0.1 (0.0-0.6) K/mcL Basophils # 0.0 (0.0-0.2) K/mcL Sodium 141 (136-145) mEq/L Potassium 3.9 (3.5-4.5) mEq/L Chloride 109 (98-109) mEq/L Carbon Dioxide 22 (19-29) mEq/L BUN 23 (8-26) mg/dL Creatinine 1.37 H (0.72-1.25) mg/dL Est GFR ( Amer) > 60 (> 60) Est GFR (Non-Af Amer) 51 L (> 60) BUN/Creatinine Ratio 17 (6-26) Glucose 97 (70-99) mg/dL Calculated Osmolality 296 (280-300) Calcium 9.5 (8.6-10.8) mg/dL Total Bilirubin (0.2-1.2) mg/dL Direct Bilirubin (0.0-0.5) mg/dL Indirect Bilirubin (0.0-1.2) mg/dL AST (5-34) Units/L ALT (0-55) Units/L Alkaline Phosphatase (38-126) Units/L Troponin I 0.03 (0-0.03) ng/mL B-Natriuretic Peptide (0-100) pg/mL Serum Total Protein (6.0-8.3) g/dL Albumin (3.5-5.0) g/dL Globulin (2.4-3.5) g/dL Albumin/Globulin Ratio (1.1-2.2) Lipase (8-78) Units/L Urine Color (Yellow) Urine Clarity (Clear) Urine pH (5.0-8.0) pH Units Ur Specific [place] (1.010-1.025) Urine Protein (Neg-Trace) mg/dL Urine Glucose (UA) (Normal) mg/dL Urine Ketones (Negative) mg/dL Urine Blood (Negative) Urine Nitrite (Negative) Urine Bilirubin (Negative) Urine Urobilinogen (Normal) mg/dL Ur Leukocyte Esterase (Negative) 05/10/17 05/10/17 05/10/17 Range/Units 12:00 12:00 12:10 WBC (4.3-11.1) K/mcL RBC (4.19-5.50) M/mcL Hgb (12.9-16.9) g/dL Hct (37.5-50.1) % MCV (83.0-100.0) fL MCH (28.0-33.3) pg MCHC (31.6-35.5) g/dL RDW (11.5-14.5) % Plt Count (140-400) K/mcL MPV (9.4-12.4) fL Immature Gran % (0-4) % Seg Neutrophils % % Lymphocytes % % Monocytes % % Eosinophils % % Basophils % % Neutrophils # (1.6-8.9) K/mcL Lymphocytes # (0.6-4.6) K/mcL Monocytes # (0.0-1.3) K/mcL Eosinophils # (0.0-0.6) K/mcL Basophils # (0.0-0.2) K/mcL Sodium (136-145) mEq/L Potassium (3.5-4.5) mEq/L Chloride (98-109) mEq/L Carbon Dioxide (19-29) mEq/L BUN (8-26) mg/dL Creatinine (0.72-1.25) mg/dL Est GFR ( Amer) (> 60) Est GFR (Non-Af Amer) (> 60) BUN/Creatinine Ratio (6-26) Glucose (70-99) mg/dL Calculated Osmolality (280-300) Calcium (8.6-10.8) mg/dL Total Bilirubin 0.8 (0.2-1.2) mg/dL Direct Bilirubin 0.3 (0.0-0.5) mg/dL Indirect Bilirubin 0.5 (0.0-1.2) mg/dL AST 17 (5-34) Units/L ALT 10 (0-55) Units/L Alkaline Phosphatase 68 (38-126) Units/L Troponin I (0-0.03) ng/mL B-Natriuretic Peptide 537 H (0-100) pg/mL Serum Total Protein 6.9 (6.0-8.3) g/dL Albumin 3.8 (3.5-5.0) g/dL Globulin 3.1 (2.4-3.5) g/dL Albumin/Globulin Ratio 1.2 (1.1-2.2) Lipase 22 (8-78) Units/L Urine Color Yellow (Yellow) Urine Clarity Clear (Clear) Urine pH 6.5 (5.0-8.0) pH Units Ur Specific [place] 1.013 (1.010-1.025) Urine Protein Negative (Neg-Trace) mg/dL Urine Glucose (UA) Normal (Normal) mg/dL Urine Ketones Negative (Negative) mg/dL Urine Blood Negative (Negative) Urine Nitrite Negative (Negative) Urine Bilirubin Negative (Negative) Urine Urobilinogen Normal (Normal) mg/dL Ur Leukocyte Esterase Negative (Negative) Attestation Statement - Attestation Attestation: I examined this patient and my medical decision-making was reviewed with the Resident Physician. I agree with the documented findings, disposition and treatment plan as described.
[2016-07-29 12:07] LABS: Basophils % 0.4 %; Eosinophils # 0.1 K/mcL (0.0-0.6); Eosinophils % 1.7 %; Hematocrit 38.3 % (37.5-50.1); Hemoglobin 11.8 g/dL (12.9-16.9); Immature Granulocytes % 0.3 % (0-4); Lymphocytes # 1.3 K/mcL (0.6-4.6); Lymphocytes % 19.3 %; Mean Corpuscular HGB Conc 30.8 g/dL (31.6-35.5); Mean Corpuscular Hemoglobin 28.2 pg (28.0-33.3); Mean Corpuscular Volume 91.4 fL (83.0-100.0); Mean Platelet Volume 9.9 fL (9.4-12.4); Monocytes # 0.7 K/mcL (0.0-1.3); Monocytes % 10.1 %; Neutrophils # 4.7 K/mcL (1.6-8.9); Platelet Count 125 K/mcL (140-400); Red Blood Count 4.19 M/mcL (4.19-5.50); Red Cell Distribution Width 14.6 % (11.5-14.5); Segmented Neutrophils % 68.2 %
[2016-07-29 12:21] LABS: Bilirubin,Urine Negative (Negative); Blood,Urine Negative (Negative); Clarity,Urine Clear (Clear); Color,Urine Yellow (Yellow); Glucose,Urine (UA) Normal (Normal); Ketones,Urine Negative (Negative); Leukocyte Esterase,Urine Negative (Negative); Nitrite,Urine Negative (Negative); PH,Urine 6.5 pH Units (5.0-8.0); Protein,Urine Negative (Neg-Trace); Specific Gravity,Urine 1.013 (1.010-1.025); Urobilinogen,Urine Normal (Normal)
[2016-07-29 12:22] LABS: BUN/Creatinine Ratio 17 (6-26); Blood Urea Nitrogen 23 mg/dL (8-26); Calcium 9.5 mg/dL (8.6-10.8); Carbon Dioxide 22 mEq/L (19-29); Chloride 109 mEq/L (98-109); Glucose 97 mg/dL (70-99); Osmolality,Calculated 296 (280-300); Potassium 3.9 mEq/L (3.5-4.5); Sodium 141 mEq/L (136-145); eGFR For African Americans > 60 (> 60); eGFR For Non-African Americans 51 (> 60)
[2016-07-29] MEDS ORDERED: 0.9 % Sodium Chloride 1,000 ML IVC ONE (12:45)
[2016-07-29 14:50] LABS: Albumin 3.8 g/dL (3.5-5.0); Albumin/Globulin Ratio 1.2 (1.1-2.2); Bilirubin,Direct 0.3 mg/dL (0.0-0.5); Bilirubin,Indirect 0.5 mg/dL (0.0-1.2); Bilirubin,Total 0.8 mg/dL (0.2-1.2); Globulin 3.1 g/dL (2.4-3.5); Total Protein 6.9 g/dL (6.0-8.3)
[2016-07-29] MEDS ORDERED: Ipratropium/Albuterol Neb 3 ML IH ONE (16:00)
[2016-07-29] MEDS ORDERED: methylPREDNISolone 125 MG/2 ML VIAL IVP ONE (16:00)
[2016-07-29] MEDS ORDERED: Naloxone 0.4 MG/ML INJ IVP PRN (16:52)
[2016-07-29] MEDS ORDERED: Furosemide 40 MG/4 ML VIAL IVP ONE (17:01)
--- NOTE | 2016-07-29 17:22 | Internal Med History&Physical ---
Date of Encounter: 07/29/16 Time of Encounter: 17:09 Internal Medicine - H&P: HPI Chief complaint: SOB and ABD bloating Admitted From: Home Plans for Post Hospital Care: Home History of present illness: Mr. Tapia is a 76 year old male with PMH COPD, BPH and HTN who presented to [facility] on 07/29/2016 with complaints of worsening SOB and ABD bloating. He was found to have a new pericardial effusion, therefore he was placed in observation status for repeat echo and possible Cardiology consultation. Information obtained form chart review and patient. Patient says he has been progressively SOB since last discharged 04/2016. Says he has to stop to catch breath. Activity worsens SOB and rest relieves. Has intermittent dry cough, no CP. He also reports lower ext edema since last discharged Past Med Surg Social Fam HX - Past Medical History Medical history: aortic aneurysm, arthritis, cancer, COPD, GERD, hyperlipidemia , peripheral artery disease, other Psychiatric history: no psych history - Past Surgical History Surgical History: other - Social History Smoking Status: Former smoker Smokeless Tobacco Status: No Alcohol use: rarely Drug use: none - Family History Brother Family Member Ethnicity: Non- Living Status: Hx Family Cardiac Disorders: Yes (DC) Hx Family Respiratory Disorders: Yes (COPD) Hx Family Cancer: No Hx Family GI Disorders: No Hx Family Endocrine Disorder: No Hx Family Neuromuscular Disorders: No Hx Family Neurologic Disorders: Yes (CVA's x 4) Hx Family HEENT Disorders: No Hx Family Autoimmune Disorders: No Mother Living Status: Hx Family Neurologic Disorders: Yes (alzheimer's) Internal Medicine - H&P: Meds Amlodipine Besylate 10 mg PO DAILY 03/18/16 [History] Tamsulosin HCl [Flomax] 0.4 mg PO DAILY 03/18/16 [History] Albuterol Sulfate [Albuterol Inhaler] 1 puff IH Q4HR PRN #4 inhaler 03/20/16 [Rx ] Budesonide/Formoterol 80/4.5 [Symbicort 80/4.5] 2 puff IH BIDR #5 inhaler 03/20 [Rx] Aspirin Enteric Coated [Aspirin EC] 81 mg PO DAILY 05/08/16 [History] Allergies Penicillins [PCN] Allergy (Severe, Verified 07/02/16 13:38) Anaphylaxis All Systems PM: A 10-system review of systems was performed and is negative for pertinent findings except as documented above in the HPI. - Constitutional Vitals: Temp Pulse Resp BP Pulse Ox 97.5 F L 95 16 140/80 93 07/29/16 10:53 07/29/16 16:11 07/29/16 16:28 07/29/16 16:28 07/29/16 16:24 Internal Med - H&P Results - Labs CBC & Chem 7: 07/29/16 12:00 07/29/16 12:00
--- NOTE | 2016-07-29 17:39 | Internal Med History&Physical ---
<Vani Mahmood Nikolay - Last Filed: 07/29/16 18:22> Date of Encounter: 07/29/16 Time of Encounter: 17:34 Assessment and Plan (1) Acute and chronic respiratory failure with hypoxia Current visit: Yes Status: Acute wears O2 at home. O2 sats dropped to 83% while on home O2 dose. Chest CTA negative for Pulm embolism. Multifactorial with new pericardial, pleural effusion and cirrhosis. Denies CP, initial troponin negative. Treat underling cause. Wean O2 to home dose as able. Cycle troponins. ABGS, BNP pending (2) Cirrhosis of liver Current visit: Yes Status: Acute New diagnosis this admission. Symptomatic with ABD bloating and lower ext edema. LFTs normal. ABD US concerning for mild fatty liver versus cirrhosis. ABD CTA with small amount of ascites. Appears clinically overloaded on exam. Start IV lasix now, transition to PO as clinically improves. Will need to follow -up with PCP after discharge. Hepatitis panel, INR pending Qualifiers: Hepatic cirrhosis type: unspecified hepatic cirrhosis Ascites presence: without ascites Qualified Code(s): K74.60 - Unspecified cirrhosis of liver (3) Pericardial effusion Current visit: Yes Status: Acute Chest CTA with small pericardial effusion. Not previously seen on 04/2016 echo. Repeat echo ordered. (4) Aneurysm of infrarenal abdominal aorta Current visit: Yes Status: Acute ABD CTA with stable, chronic infrarenal aortic dissection. Moderate amt CAD. Maintain BP control Cont home ASA.Can follow-up out patient with cont monitoring. (5) COPD (chronic obstructive pulmonary disease) Current visit: Yes Status: Acute per hx. Wears O2 at home. No evidence of exacerbation. Was given IV steroids and breathing tx in ED. Hold for now. Cont home inhalers. Qualifiers: COPD type: unspecified COPD Qualified Code(s): J44.9 - Chronic obstructive pulmonary disease, unspecified (6) Lung nodule Current visit: Yes Status: Acute incidentally found. Chest CTA with RUL nodule. Will need repeat imaging in 12 months (7) CKD (chronic kidney disease) Current visit: Yes Status: Acute per hx. Cr 1.3 which appears to be at baseline. Intermittently monitor with diuretics Qualifiers: Chronic kidney disease stage: unspecified stage Qualified Code(s): N18.9 - Chronic kidney disease, unspecified (8) HTN (hypertension) Current visit: No Status: Chronic per hx. BP controlled. Cont home BP medication. Monitor BP and titrate PRN Qualifiers: Hypertension type: essential hypertension Qualified Code(s): I10 - Essential (primary) hypertension (9) BPH (benign prostatic hyperplasia) Current visit: Yes Status: Acute per hx. Cont home medication regimen. Qualifiers: Prostatic enlargement morphology: unspecified morphology Lower urinary tract symptom presence: presence of symptoms unspecified Qualified Code(s): N40.0 - Benign prostatic hyperplasia without lower urinary tract symptoms (10) DVT prophylaxis Current visit: Yes Status: Acute heparin Internal Medicine - H&P: HPI Chief complaint: SOB and ABD bloating Admitted From: Home Plans for Post Hospital Care: Home History of present illness: Mr. Tapia is a 76 year old male with PMH COPD, HTN and BPH who presented to [facility] on 07/29/2016 with complaints of worsening SOB and ABD bloating. Chest CTA showed new pericardial effusion and cirrhosis. He was started on UV diuresis and place in observation for further work-up and treatment. Information obtained from chart review and patient report. Patient says he has been progressively SOB since last discharged 04/2016. Now has to stop and catch breath. Activity worses and rest relieves. Also reports worsening ABD bloating and lower ext edema since discharged. Was discharged on diuretics but did not go to PCP for medication refill. No CP, no ABD pain, no N/V/D Past Med Surg Social Fam HX - Past Medical History Medical history: aortic aneurysm, arthritis, cancer, COPD, GERD, hyperlipidemia , peripheral artery disease, other Psychiatric history: no psych history - Past Surgical History Surgical History: other - Social History Smoking Status: Former smoker Smokeless Tobacco Status: No Alcohol use: rarely Drug use: none - Family History Brother Family Member Ethnicity: Non- Living Status: Hx Family Cardiac Disorders: Yes ([place]) Hx Family Respiratory Disorders: Yes (COPD) Hx Family Cancer: No Hx Family GI Disorders: No Hx Family Endocrine Disorder: No Hx Family Neuromuscular Disorders: No Hx Family Neurologic Disorders: Yes (CVA's x 4) Hx Family HEENT Disorders: No Hx Family Autoimmune Disorders: No Mother Living Status: Hx Family Neurologic Disorders: Yes (alzheimer's) - Additional Family History Additional family history: reviewed and non-contributory Internal Medicine - H&P: Meds Amlodipine Besylate 10 mg PO DAILY 03/18/16 [History] Tamsulosin HCl [Flomax] 0.4 mg PO DAILY 03/18/16 [History] Albuterol Sulfate [Albuterol Inhaler] 1 puff IH Q4HR PRN #4 inhaler 03/20/16 [Rx ] Budesonide/Formoterol 80/4.5 [Symbicort 80/4.5] 2 puff IH BIDR #5 inhaler 03/20 [Rx] Aspirin Enteric Coated [Aspirin EC] 81 mg PO DAILY 05/08/16 [History] Allergies Penicillins [PCN] Allergy (Severe, Verified 07/02/16 13:38) Anaphylaxis All Systems PM: A 10-system review of systems was performed and is negative for pertinent findings except as documented above in the HPI. - Constitutional Constitutional: no chills, no fever(s), no night sweats - EENT Eyes: no change in vision, no discharge, no pain, no photophobia Ears: no ear discharge, no ear pain, no tinnitus Nose, mouth and throat: no dysphagia, no nasal discharge, no neck pain, no sore throat - Cardiovascular Cardiovascular ROS IM: dyspnea on exertion, edema, no chest pain, no diaphoresis , no dyspnea, no lightheadedness, no palpitations, no syncope - Respiratory Respiratory: dyspnea, dyspnea on exertion, no cough, no wheezing, no excessive phlegm production - Gastrointestinal Gastrointestinal: bloating, no abdominal pain, no diarrhea, no hematemesis, no hematochezia, no melena, no nausea, no vomiting - Musculoskeletal Musculoskeletal ROS IM: no numbness, no tingling - Integumentary Integumentary IM: no rash, no unusual bruising - Neurological Neurological ROS: no confusion, no convulsions, no focal weakness, no numbness, no tingling, no tremor(s) - Hematologic/Lymphatic Hematologic/Lymphatic: no easy bruising - Constitutional Vitals: Temp Pulse Resp BP Pulse Ox 97.5 F L 99 20 151/92 91 07/29/16 17:16 07/29/16 17:16 07/29/16 17:16 07/29/16 17:16 07/29/16 17:16 General appearance: Present: A&O X 3, no acute distress - Head Head exam: Present: atraumatic, normocephalic - Eye Eye exam: Present: PERRL, conjuntiva pink, sclera anicteric Pupils: Present: PERRL - Neck Neck exam general surgery: Present: supple, trachea midline. Absent: lymphadenopathy - Respiratory Respiratory exam: Present: CTAB. Absent: accessory muscle use, rales, rhonchi, wheezes - Cardiovascular Cardiovascular exam: Present: RRR, +S1, +S2. Absent: diastolic murmur, gallop, rubs, systolic murmur - GI/Abdominal GI/Abdominal exam: Present: normal bowel sounds, soft, no peritoneal signs. Absent: distended, tenderness Additional comments: obese, firm - Extremities Exam Extremities exam: Present: pedal edema, warm, radial pulses palpable and symetrical. Absent: calf tenderness, cyanotic - Neurological Exam Neurological exam: Present: CN II-XII intact, oriented X3, no focal deficits. Absent: pronater drift, facial droop, speech deficit - Skin Skin exam: Present: dry, intact Internal Med - H&P Results - Labs CBC & Chem 7: 07/29/16 12:00 07/29/16 12:00 Labs: Short CBC 07/29/16 Range/Units 12:00 WBC 6.9 (4.3-11.1) K/mcL Hgb 11.8 L (12.9-16.9) g/dL Hct 38.3 (37.5-50.1) % Plt Count 125 L (140-400) K/mcL Neutrophils # 4.7 (1.6-8.9) K/mcL BMP 07/29/16 12:00 Sodium 141 Potassium 3.9 Chloride 109 Carbon Dioxide 22 BUN 23 Creatinine 1.37 H Glucose 97 Calcium 9.5 Cardiac Enzymes 07/29/16 Range/Units 12:00 Troponin I 0.03 (0-0.03) ng/mL Liver Function 07/29/16 Range/Units 12:00 Total Bilirubin 0.8 (0.2-1.2) mg/dL Direct Bilirubin 0.3 (0.0-0.5) mg/dL AST 17 (5-34) Units/L ALT 10 (0-55) Units/L Alkaline Phosphatase 68 (38-126) Units/L Albumin 3.8 (3.5-5.0) g/dL Urine 07/29/16 Range/Units 12:10 Urine Color Yellow (Yellow) Urine Clarity Clear (Clear) Urine pH 6.5 (5.0-8.0) pH Units Ur Specific [place] 1.013 (1.010-1.025) Urine Protein Negative (Neg-Trace) mg/dL Urine Glucose (UA) Normal (Normal) mg/dL - Impressions ITS Impressions Abdomen/Pelvis CTA 07/29/16 11:53 IMPRESSION: 1. Again seen is focal chronic infrarenal abdominal aortic dissection with stable infrarenal abdominal aortic ectasia. Moderate amount of aortoiliac atherosclerotic disease. No evidence of acute dissection or aneurysm. 2. Cardiomegaly and coronary artery disease. Small pericardial effusion. 3. Small bilateral pleural effusions and bibasilar atelectasis. 4. Stable 5 mm noncalcified right upper lobe lung nodule. Follow-up chest CT in 12 months recommended to document 2 year stability. 5. There is gallbladder wall thickening and pericholecystic fluid. If there is concern for acute cholecystitis, then further evaluation with right upper quadrant ultrasound is suggested. 6. Small amount of abdominal ascites. 7. Colonic diverticulosis without acute inflammatory changes. D/ / 07/29/2016 13:51:58 Mallory Hooks MD / juan Interpreting Provider: Mallory Hooks MD Chest CTA 07/29/16 11:53 IMPRESSION: 1. Again seen is focal chronic infrarenal abdominal aortic dissection with stable infrarenal abdominal aortic ectasia. Moderate amount of aortoiliac atherosclerotic disease. No evidence of acute dissection or aneurysm. 2. Cardiomegaly and coronary artery disease. Small pericardial effusion. 3. Small bilateral pleural effusions and bibasilar atelectasis. 4. Stable 5 mm noncalcified right upper lobe lung nodule. Follow-up chest CT in 12 months recommended to document 2 year stability. 5. There is gallbladder wall thickening and pericholecystic fluid. If there is concern for acute cholecystitis, then further evaluation with right upper quadrant ultrasound is suggested. 6. Small amount of abdominal ascites. 7. Colonic diverticulosis without acute inflammatory changes. D/ / 07/29/2016 13:51:58 Mallory Hooks MD / juan Interpreting Provider: Mallory Hooks MD Head CT 07/29/16 12:46 IMPRESSION: No acute intracranial abnormality. D/ / Lev Ji MD / Lev Ji MD Interpreting Provider: Lev Ji MD Gallbladder Ultrasound 07/29/16 14:22 IMPRESSION: 1. No evidence of cholecystitis. 2. Coarse hepatic echotexture, which may be secondary to mild fatty infiltration versus cirrhosis. 3. Minimal perihepatic ascites. D/ / Lev Rojas MD / Lev Rojas MD Interpreting Provider: Lev Rojas MD <Cheryl Barrett - Last Filed: 07/29/16 18:37> Date of Encounter: 07/29/16 Time of Encounter: 18:30 Internal Medicine - H&P: HPI History of present illness: Mr. Tapia is a 76 year old male All Systems PM: A 10-system review of systems was performed and is negative for pertinent findings except as documented above in the HPI. - Constitutional Vitals: Temp Pulse Resp BP Pulse Ox 97.5 F L 99 20 151/92 91 07/29/16 17:16 07/29/16 17:16 07/29/16 17:16 07/29/16 17:16 07/29/16 17:16 Internal Med - H&P Results - Labs CBC & Chem 7: 07/29/16 12:00 07/29/16 12:00 - Attending Attestation I examined this patient and my medical decision-making was reviewed with the nurse practitioner. I agree with the documented history of present illness, review of systems, past medical, surgical social and family histories and examination findings, disposition and treatment plan as described above except to any changes set forth below. 76-year-old male patient with a history of chronic respiratory failure on home oxygen at 3 L/m, COPD presented to the ER with complaints of worsening shortness of breath especially with exertion. He had been recently treated for pneumonia and is recovering from that. He was receiving physical therapy but unable to cooperate with that today given his worsening shortness of breath. During his last hospitalization, he was also discharged on Lasix but he has not continued to take it since then. He feels increased pressure in his head when he bends forwards. He denies any orthopnea. He does get pedal edema and complains of abdominal fullness. On examination, patient is awake and alert. Heart sounds are normal. He does not have any wheezing. Decreased breath sounds at both bases. Bilateral pedal edema present. Acute on chronic respiratory failure: Likely multifactorial. Recent does have worsening pedal edema. We will get chest x-ray. Start IV Lasix. BNP is significantly elevated compared to baseline in April. We will also repeat 2- D echocardiogram given the findings of pleural effusion on CT scan of the chest. Cirrhosis of the liver: Patient appears to be having findings suggestive of cirrhosis based on ultrasound of the abdomen. His albumin is within normal limits. Check PT/INR. Check hepatic panel. COPD: Not in acute exacerbation at this time. Use nebs when necessary. Chronic kidney disease stage II: Creatinine is at baseline. Will follow renal function as patient will be receiving IV Lasix. DVT prophylaxis with subcutaneous heparin.
[2016-07-29 18:49] LABS: ABG Base Excess -2.7 mEq/L (-2.0 to 3.0); ABG HCO3 19.7 mEQ/L (21-27); ABG Oxygen Saturation 89 % (95-98); ABG PCO2 27 mmHg (35-45); ABG PH 7.47 pH Units (7.32-7.45); ABG PO2 52 mmHg (85-104); ABG TCO2 20.5 mEq/L (20-26)
[2016-07-29 18:50] LABS: Blood Gas FiO2 32 %
[2016-07-29] MEDS: *HR* Heparin 5,000 UNIT/ML VIAL SQ SCH (20:12)
[2016-07-29] MEDS: Furosemide 20 MG/2 ML VIAL IVP SCH (20:12)
[2016-07-29] MEDS: Budesonide/Formoterol 80/4.5 MDI IH SCH (21:12)
--- NOTE | 2016-07-29 21:32 | ECHO - Doppler Report ---
Limited Echocardiogram Name: Ralph Tapia Date of Study: 07/29/2016 Date: 1940 Ht: 69.0 in Medical Record#: [id number] Age: 76 Wt: 203.0 lb Gender: Male BSA: 2.08 Order #: [id number] Location: [facility] Room #: [id number] Reading Physician: Antony Melendrez DO, FACC, FASE [employer]er: Lydia Alva RDCS Ordering Physician: Vani Mahmood CNP Primary Physician: Amelia Styles MD Indications: Pericarditis/Pericardial Effusion/Tamponade Impressions: LVEF 70%. Normal LV chamber size, wall thickness and hyperdynamic function. There is a small circumfirential pericardial effusion present. There is no echocardiographic evidence of tamponade. Left Ventricular Wall Motion: Rest Echo Findings All wall segments showed normal motion. Findings: Study Quality * Technically adequate exam. ECG Findings * Sinus tachycardia. Left Ventricle * LVEF 70%. * Normal LV chamber size, wall thickness and hyperdynamic function. Right Ventricle * Normal right ventricular structure and function. IVC * Normal IVC dimensions and inspiratory collapse. Pericardium * There is a small circumfirential pericardial effusion present. * There is no echocardiographic evidence of tamponade. History Hypercholesteremia Family History of CAD 05/09/2016 a Previous Echo was performed. Measurements: BP: 143/ 75 2D Normal Values RVIDd: 3.55 cm <2.7 cm IVSd: 1.33 cm 0.6 - 1.0 cm LVIDd: 3.64 cm 3.7 - 5.6 cm LVPWd: 1.39 cm 0.6 - 1.1 cm LVIDs: 2.22 cm 1.5 - 3.6 cm %FS: 39.00 cm >25 % LA volume: Updated by Antony Melendrez DO, FACC, FASE, FASNC on 07/29/2016 9:23:05 PM electronically signed on 07/29/2016 9:27:00 PM with status of Final Wall Motion [place]: 1=Normal, 2=Hypokinesis, 3=Akinesis, 4=Dyskinesis, 5=Aneurysmal, 6=Hyperkinetic, X=Not Visualized (Blank)=Missing
[2016-07-29 23:29] LABS: Hepatitis A Antibody IgM Nonreactive (Nonreactive); Hepatitis B Core IgM Nonreactive (Nonreactive); Hepatitis C Virus Antibody Nonreactive (Nonreactive)
[2016-07-29 23:30] LABS: Hepatitis B Surface Antigen Nonreactive (Nonreactive)
[2016-07-30 05:40] LABS: Hematocrit 36.1 % (37.5-50.1); Immature Granulocytes % 0.6 % (0-4); Lymphocytes # 0.7 K/mcL (0.6-4.6); Lymphocytes % 21.8 %; Mean Corpuscular HGB Conc 30.5 g/dL (31.6-35.5); Mean Corpuscular Hemoglobin 27.8 pg (28.0-33.3); Mean Corpuscular Volume 91.4 fL (83.0-100.0); Mean Platelet Volume 10.4 fL (9.4-12.4); Monocytes # 0.1 K/mcL (0.0-1.3); Monocytes % 4.4 %; Platelet Count 130 K/mcL (140-400); Red Blood Count 3.95 M/mcL (4.19-5.50); Red Cell Distribution Width 14.6 % (11.5-14.5); Segmented Neutrophils % 73.2 %
[2016-07-30 05:42] LABS: Neutrophils # 2.3 K/mcL (1.6-8.9)
[2016-07-30 05:44] LABS: INR 1.4; Prothrombin Time 15.7 Seconds (9.4-12.1)
[2016-07-30 06:05] LABS: Alanine Aminotransferase 9 Units/L (0-55); Albumin 3.5 g/dL (3.5-5.0); Albumin/Globulin Ratio 1.1 (1.1-2.2); Alkaline Phosphatase 59 Units/L (38-126); Aspartate Amino Transferase 15 Units/L (5-34); BUN/Creatinine Ratio 16 (6-26); Bilirubin,Total 0.6 mg/dL (0.2-1.2); Blood Urea Nitrogen 22 mg/dL (8-26); Calcium 9.3 mg/dL (8.6-10.8); Carbon Dioxide 22 mEq/L (19-29); Chloride 109 mEq/L (98-109); Globulin 3.1 g/dL (2.4-3.5); Glucose 139 mg/dL (70-99); Osmolality,Calculated 302 (280-300); Potassium 4.4 mEq/L (3.5-4.5); Sodium 143 mEq/L (136-145); Total Protein 6.6 g/dL (6.0-8.3); eGFR For African Americans > 60 (> 60); eGFR For Non-African Americans 50 (> 60)
[2016-07-30] MEDS: *HR* Heparin 5,000 UNIT/ML VIAL SQ SCH ×3 (06:35→21:47)
[2016-07-30] MEDS: Furosemide 20 MG/2 ML VIAL IVP SCH ×2 (08:14→21:47)
[2016-07-30] MEDS: Aspirin Enteric Coated 81 MG Tablet PO SCH (08:14)
[2016-07-30] MEDS: amLODIPine 5 MG TABLET PO SCH (08:14)
[2016-07-30] MEDS: Budesonide/Formoterol 80/4.5 MDI IH SCH ×2 (08:38→20:06)
--- NOTE | 2016-07-30 14:34 | Internal Med Progress Note ---
Date of Encounter: 07/30/16 Time of Encounter: 14:30 - Assessment and plan (1) Hypoxia Current Visit: No Status: Acute Assessment and plan: no evidence of pneumonia or pulmonary emboli, feels better after iv diuretic therapy. will continue with lasix and oxygen supplementation. possible chronic liver disease, negative marker for viral hepatitis, thrombocytopenia, anemia and leukopenia, possible due to hypersplensim. fluid restriction. possible d/c tomorrow if stable. D/W patient. (2) Acute and chronic respiratory failure with hypoxia Current Visit: Yes Status: Acute (3) DVT prophylaxis Current Visit: Yes Status: Acute (4) Cirrhosis of liver Current Visit: Yes Status: Acute Qualifiers: Hepatic cirrhosis type: unspecified hepatic cirrhosis Ascites presence: without ascites Qualified Code(s): K74.60 - Unspecified cirrhosis of liver - Subjective Interval history: 1st encpunter with the patient,feels better, denies history of chronic liver disease or alcohol abuse. - Constitutional Vitals: Temp Pulse Resp BP Pulse Ox 97.7 F 89 16 111/64 94 07/30/16 10:53 07/30/16 10:53 07/30/16 10:53 07/30/16 10:53 07/30/16 10:53 General appearance: Present: A&O X 3, no acute distress - Head Head exam: Present: atraumatic, normocephalic - Eye Eye exam: Present: PERRL, conjuntiva pink, sclera anicteric Pupils: Present: PERRL - Neck Neck exam general surgery: Present: supple, trachea midline. Absent: lymphadenopathy - Respiratory Respiratory exam: Present: decreased breath sounds. Absent: accessory muscle use, rales, rhonchi, wheezes - Cardiovascular Cardiovascular exam: Present: RRR, +S1, +S2. Absent: diastolic murmur, gallop, rubs, systolic murmur - GI/Abdominal GI/Abdominal exam: Present: normal bowel sounds, soft, no peritoneal signs. Absent: distended, tenderness - Extremities Exam Extremities exam: Present: warm, radial pulses palpable and symetrical. Absent : calf tenderness, cyanotic, pedal edema - Neurological Exam Neurological exam: Present: CN II-XII intact, oriented X3, no focal deficits. Absent: pronater drift, facial droop, speech deficit - Skin Skin exam: Present: dry, intact Internal Medicine: Result - Labs CBC & Chem 7: 07/30/16 04:17 07/30/16 04:17 - ABG Interpretation ABG results: ABG ABG pH 7.47 pH Units (7.32-7.45) H 07/29/16 18:40 ABG pCO2 27 mmHg (35-45) L 07/29/16 18:40 ABG pO2 52 mmHg (85-104) L 07/29/16 18:40 ABG O2 Saturation 89 % (95-98) L 07/29/16 18:40 PT/INR, D-dimer PT 15.7 Seconds (9.4-12.1) H 07/30/16 04:17 Consult Discharge Plan - Plan Referrals: Amelia Styles MD [Primary Care Provider] - 08/06/16 10:40 am (Please follow up as schedule...)
[2016-07-31 05:08] LABS: Basophils % 0.4 %; Eosinophils # 0.1 K/mcL (0.0-0.6); Eosinophils % 0.9 %; Hematocrit 34.5 % (37.5-50.1); Hemoglobin 10.7 g/dL (12.9-16.9); Immature Granulocytes % 0.5 % (0-4); Lymphocytes # 1.7 K/mcL (0.6-4.6); Lymphocytes % 21.1 %; Mean Corpuscular Hemoglobin 28.4 pg (28.0-33.3); Mean Corpuscular Volume 91.5 fL (83.0-100.0); Mean Platelet Volume 10.3 fL (9.4-12.4); Monocytes % 12.8 %; Platelet Count 124 K/mcL (140-400); Red Blood Count 3.77 M/mcL (4.19-5.50); Red Cell Distribution Width 14.8 % (11.5-14.5); Segmented Neutrophils % 64.3 %
[2016-07-31 05:10] LABS: Neutrophils # 5.1 K/mcL (1.6-8.9)
[2016-07-31 05:22] LABS: BUN/Creatinine Ratio 23 (6-26); Blood Urea Nitrogen 29 mg/dL (8-26); Carbon Dioxide 26 mEq/L (19-29); Chloride 108 mEq/L (98-109); Glucose 101 mg/dL (70-99); Magnesium 2.3 mg/dL (1.6-2.6); Osmolality,Calculated 302 (280-300); Potassium 4.1 mEq/L (3.5-4.5); Sodium 143 mEq/L (136-145); eGFR For African Americans > 60 (> 60); eGFR For Non-African Americans 55 (> 60)
[2016-07-31] MEDS: *HR* Heparin 5,000 UNIT/ML VIAL SQ SCH (05:33)
[2016-07-31 07:02] VITALS: BP 124/70
[2016-07-31] MEDS: Aspirin Enteric Coated 81 MG Tablet PO SCH (09:20)
[2016-07-31] MEDS: amLODIPine 5 MG TABLET PO SCH (09:21)
[2016-07-31] MEDS: Furosemide 20 MG/2 ML VIAL IVP SCH (09:21)
--- NOTE | 2016-07-31 11:11 | Discharge Summary ---
Date of Encounter: 07/31/16 Time of Encounter: 11:09 - Discharge Diagnosis (1) Hypoxia Priority: Secondary Status: Acute (2) Acute and chronic respiratory failure with hypoxia Priority: Primary Status: Acute (3) DVT prophylaxis Priority: Secondary Status: Acute (4) Cirrhosis of liver Priority: Secondary Status: Acute Qualifiers: Hepatic cirrhosis type: unspecified hepatic cirrhosis Ascites presence: without ascites Qualified Code(s): K74.60 - Unspecified cirrhosis of liver - Discharge Medications Prescriptions: Furosemide [Lasix] 40 mg PO DAILY 10 Days Home Medications: Amlodipine Besylate 10 mg PO DAILY 03/18/16 [History] Tamsulosin HCl [Flomax] 0.4 mg PO DAILY 03/18/16 [History] Albuterol Sulfate [Albuterol Inhaler] 1 puff IH Q4HR PRN #4 inhaler 03/20/16 [Rx ] Budesonide/Formoterol 80/4.5 [Symbicort 80/4.5] 2 puff IH BIDR #5 inhaler 03/20 [Rx] Aspirin Enteric Coated [Aspirin EC] 81 mg PO DAILY 05/08/16 [History] Furosemide [Lasix] 40 mg PO DAILY 10 Days 07/31/16 [Rx] Allergies/Adverse Reactions: Allergies Penicillins [PCN] Allergy (Severe, Verified 07/02/16 13:38) Anaphylaxis Date of admission: 07/30/16 13:09 Primary care physician: Amelia Styles Discharging clinician: Shabbir Lovell Anticipated date of discharge: 07/31/16 - Patient Status Disposition: Home, Self-Care Condition: Good Functional capacity at discharge: independent ambulation Overall status at discharge: patient is back to baseline - Discharge Instructions Follow Up With: Amelia Styles MD [Primary Care Provider] - 08/06/16 10:40 am (Please follow up as schedule...) - Diet and Activity Activity: increase activity as tolerated Interval History: Mr. Tapia is a 76 year old male with PMH COPD, HTN and BPH who presented to [facility] on 07/29/2016 with complaints of worsening SOB and ABD bloating. Chest CTA showed new pericardial effusion and cirrhosis. He was started on UV diuresis and place in observation for further work-up and treatment. Information obtained from chart review and patient report. Patient says he has been progressively SOB since last discharged 04/2016. Now has to stop and catch breath. Activity worses and rest relieves. Also reports worsening ABD bloating and lower ext edema since discharged. Was discharged on diuretics but did not go to PCP for medication refill. No CP, no ABD pain, no N/V/D Hospital course: Mr. Tapia is a 76 year old male with underlying copd admitted due to sob and hypoxemia. Patient appears to be having findings suggestive of cirrhosis based on ultrasound of the abdomen. His albumin is within normal limits. Echo done wnl. Patient improved wth lasix and fluid restriction. Negative testing for viral hepatits, denies history of heavy alcohol intake. patient has improved with lasix and fluid restriction, will discharge him home today on po lasix, his oxygen needs are at his baseline, he sally follow up with his pcp and sally do a referral for gi evaluation as outpatent. d/w patient and his . Abdomen/Pelvis CTA 07/29/16 11:53 IMPRESSION: 1. Again seen is focal chronic infrarenal abdominal aortic dissection with stable infrarenal abdominal aortic ectasia. Moderate amount of aortoiliac atherosclerotic disease. No evidence of acute dissection or aneurysm. 2. Cardiomegaly and coronary artery disease. Small pericardial effusion. 3. Small bilateral pleural effusions and bibasilar atelectasis. 4. Stable 5 mm noncalcified right upper lobe lung nodule. Follow-up chest CT in 12 months recommended to document 2 year stability. 5. There is gallbladder wall thickening and pericholecystic fluid. If there is concern for acute cholecystitis, then further evaluation with right upper quadrant ultrasound is suggested. 6. Small amount of abdominal ascites. 7. Colonic diverticulosis without acute inflammatory changes. D/ / 07/29/2016 13:51:58 Mallory Hooks MD / juan Interpreting Provider: Mallory Hooks MD Chest CTA 07/29/16 11:53 IMPRESSION: 1. Again seen is focal chronic infrarenal abdominal aortic dissection with stable infrarenal abdominal aortic ectasia. Moderate amount of aortoiliac atherosclerotic disease. No evidence of acute dissection or aneurysm. 2. Cardiomegaly and coronary artery disease. Small pericardial effusion. 3. Small bilateral pleural effusions and bibasilar atelectasis. 4. Stable 5 mm noncalcified right upper lobe lung nodule. Follow-up chest CT in 12 months recommended to document 2 year stability. 5. There is gallbladder wall thickening and pericholecystic fluid. If there is concern for acute cholecystitis, then further evaluation with right upper quadrant ultrasound is suggested. 6. Small amount of abdominal ascites. 7. Colonic diverticulosis without acute inflammatory changes. D/ / 07/29/2016 13:51:58 Mallory Hooks MD / juan Interpreting Provider: Mallory Hooks MD Head CT 07/29/16 12:46 IMPRESSION: No acute intracranial abnormality. D/ / Lev Ji MD / Lev Ji MD Interpreting Provider: Lev Ji MD Gallbladder Ultrasound 07/29/16 14:22 IMPRESSION: 1. No evidence of cholecystitis. 2. Coarse hepatic echotexture, which may be secondary to mild fatty infiltration versus cirrhosis. 3. Minimal perihepatic ascites. D/ / Lev Rojas MD / Lev Rojas MD Interpreting Provider: Lev Rojas MD - Time Spent with Patient Total time spent providing and/or coordinating discharge services: - Constitutional Vitals: Temp Pulse Resp BP Pulse Ox 98.0 F 76 16 124/70 95 07/31/16 06:57 07/31/16 06:57 07/31/16 06:57 07/31/16 06:57 07/31/16 06:57 General appearance: Present: A&O X 3, no acute distress - Head Head exam: Present: atraumatic, normocephalic - Eye Eye exam: Present: PERRL, conjuntiva pink, sclera anicteric Pupils: Present: PERRL - Neck Neck exam general surgery: Present: supple, trachea midline. Absent: lymphadenopathy - Respiratory Respiratory exam: Present: CTAB. Absent: accessory muscle use, rales, rhonchi, wheezes - Cardiovascular Cardiovascular exam: Present: RRR, +S1, +S2. Absent: diastolic murmur, gallop, rubs, systolic murmur - GI/Abdominal GI/Abdominal exam: Present: normal bowel sounds, soft, no peritoneal signs. Absent: distended, tenderness - Extremities Exam Extremities exam: Present: warm, radial pulses palpable and symetrical. Absent : calf tenderness, cyanotic, pedal edema Additional comments: pitting edema +/+++ - Neurological Exam Neurological exam: Present: CN II-XII intact, oriented X3, no focal deficits. Absent: pronater drift, facial droop, speech deficit - Skin Skin exam: Present: dry, intact
[2016-07-31] MEDS: Budesonide/Formoterol 80/4.5 MDI IH SCH (11:14)
--- NOTE | 2016-08-03 17:25 | Electrocardiograph Report ---
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
== END 2016-07-31 12:20 | disposition home or self-care (01) | DRG 189 ==
LOC: 2ANU 10:51 → EMEROO 10:51 → 2ANU 16:50
PROVIDERS: ADMIT Internal Medicine; ATTEND Internal Medicine